=== PATIENT | male | born 1935 | race Native Hawaiian/Other Pacific Islander ===

== ENCOUNTER 2017-05-18 23:49 | Emergency (ER) | payer BC, MEDICARE ==
[2017-05-19] MEDS ORDERED: Albuterol-Ipratrop 3 mg / 0.5 (3 ml) UD IH STA ×2 (01:20→03:23)
--- NOTE | 2017-05-19 01:26 | ED PDOC ---
Arrival/HPI - General Chief Complaint: Shortness Of Breath Time Seen by Provider: 05/19/17 00:51 Historian: Patient - History of Present Illness Narrative History of Present Illness (Text): 05/19/17 01:18 A 81 year old male, whose past medical history includes COPD, diabetes mellitus , and hypertension, presents to the emergency department complaining of shortness of breath from worsening emphysema according to patient. Patient denies chest pain, fever, chills, cough, or any other complaints. Also, patient mentions he uses home nebulizer and is currently feeling better. No PMD Past Medical History - Provider Review Nursing Documentation Reviewed: Yes - Cardiac Hx Hypertension: Yes - Pulmonary Hx Respiratory Disorders: Yes Hx Chronic Obstructive Pulmonary Disease (COPD): Yes - Endocrine/Metabolic Hx Endocrine Disorders: Yes Hx Diabetes Mellitus Type 2: Yes - Psychiatric Hx Substance Use: No - Surgical History Hx Cholecystectomy: Yes Family/Social History - Physician Review Nursing Documentation Reviewed: Yes Family/Social History: No Known Family HX Smoking Status: Former Smoker Hx Alcohol Use: No Hx Substance Use: No Allergies/Home Meds Allergies/Adverse Reactions: Allergies No Known Allergies Allergy (Verified 05/19/17 00:18) Home Medications: Home Meds Medication Instructions Recorded Confirmed Losartan [Cozaar] 05/19/17 Simvastatin [Zocor] 05/19/17 05/19/17 metFORMIN [glucOPHAGE] 05/19/17 Review of Systems - Physician Review All systems were reviewed & negative as marked: Yes - Review of Systems Constitutional: absent: Fevers, Night Sweats Respiratory: SOB. absent: Cough Cardiovascular: absent: Chest Pain Physical Exam Vital Signs Reviewed: Yes Vital Signs Temp Pulse Resp BP Pulse Ox 05/19/17 03:00 98.5 F 83 16 150/59 L 100 05/19/17 01:49 98.6 F 87 19 139/78 99 05/19/17 00:15 16 99 05/19/17 00:13 98.6 F 85 18 156/83 H 97 Temperature: Afebrile Blood Pressure: Hypertensive Pulse: Regular Respiratory Rate: Normal Appearance: Positive for: Well-Appearing Pain Distress: None Mental Status: Positive for: Alert and Oriented X 3 - Systems Exam Head: Present: Atraumatic, Normocephalic Pupils: Present: PERRL Extroacular Muscles: Present: EOMI Conjunctiva: Present: Normal Mouth: Present: Moist Mucous Membranes Neck: Present: Normal Range of Motion Respiratory/Chest: Present: Decreased Breath Sounds (bilaterally) Cardiovascular: Present: Regular Rate and Rhythm, Normal S1, S2. No: Murmurs Abdomen: Present: Normal Bowel Sounds. No: Tenderness, Distention, Peritoneal Signs Back: Present: Normal Inspection Upper Extremity: Present: Normal Inspection. No: Cyanosis, Edema Lower Extremity: Present: Normal Inspection. No: Edema Neurological: Present: GCS=15, CN II-XII Intact, Speech Normal Skin: Present: Warm, Dry, Normal Color. No: Rashes Psychiatric: Present: Alert, Oriented x 3, Normal Insight, Normal Concentration Medical Decision Making ED Course and Treatment: 05/19/17 01:20 Impression: 81 year old male with shortness of breath. Physical exam shows decreased breath sounds bilaterally, overall normal examination. Plan: -- EKG -- Chest X-ray -- labs -- Duoneb -- SOLU-Medrol -- Reassess and disposition Progress Notes: - Lab Interpretations Lab Results: 05/19/17 00:30 05/19/17 00:30 Lab Results 05/19/17 00:30: WBC 6.0, RBC 4.55, Hgb 13.0 L, Hct 40.3 L, MCV 88.6, MCH 28.6, MCHC 32.3, RDW 14.4, Plt Count 193, MPV 9.4 05/19/17 00:30: Sodium 144, Potassium 4.7, Chloride 103, Carbon Dioxide 31, Anion Gap 14, BUN 12, Creatinine 1.2, Est GFR ( Amer) > 60, Est GFR (Non- Af Amer) 58, Random Glucose 129 H, Calcium 9.0, Total Bilirubin 0.3, AST 27, ALT 28, Alkaline Phosphatase 86, Lactate Dehydrogenase 491, Total Creatine Kinase 101, Troponin I < 0.01, Total Protein 7.2, Albumin 4.2, Globulin 3.0, Albumin/Globulin Ratio 1.4 I have reviewed the lab results: Yes - RAD Interpretation Narrative RAD Interpretations (Text): 05/19/17 04:28 CXR- No acute process Radiology Orders: 05/19/17 01:20 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 - EKG Interpretation EKG Interpretation (Text): 02/21/18 04:28 EKG-NSR@ 85 with sinus arrythmia,no acute changes Interpreted by ED Physician: Yes Type: 12 lead EKG - Medication Orders Current Medication Orders: Discontinued Medications Albuterol/Ipratropium (Duoneb 3 Mg/0.5 Mg (3 Ml) Ud) 3 ml IH ONCE STA Stop: 05/19/17 01:21 Last Admin: 05/19/17 01:27 Dose: 3 ml Albuterol/Ipratropium (Duoneb 3 Mg/0.5 Mg (3 Ml) Ud) 3 ml IH ONCE STA Stop: 05/19/17 03:24 Last Admin: 05/19/17 03:39 Dose: 3 ml Methylprednisolone (Solu-Medrol) 125 mg IVP ONCE ONE Stop: 05/19/17 01:21 Last Admin: 05/19/17 01:29 Dose: 125 mg IVP Administration Document 05/19/17 01:29 AB (Rec: 05/19/17 01:29 AB [id number]) Charges for Administration # of IVP Administrations 1 - Scribe Statement The provider has reviewed the documentation as recorded by the Chanell Russell Provider Scribe Attestation: All medical record entries made by the Scribe were at my direction and personally dictated by me. I have reviewed the chart and agree that the record accurately reflects my personal performance of the history, physical exam, medical decision making, and the department course for this patient. I have also personally directed, reviewed, and agree with the discharge instructions and disposition. Disposition/Present on Arrival - Present on Arrival Any Indicators Present on Arrival: No History of DVT/PE: No History of Uncontrolled Diabetes: No Urinary Catheter: No History of Decub. Ulcer: No History Surgical Site Infection Following: None - Disposition Have Diagnosis and Disposition been Completed?: Yes Diagnosis: COPD (chronic obstructive pulmonary disease) Disposition: HOME/ ROUTINE Disposition Time: 04:29 Patient Plan: Discharge Condition: GOOD Discharge Instructions (ExitCare): Chronic Obstructive Pulmonary Disease (COPD) , Including Emphysema Additional Instructions: Take meds as prescribed/follow up with your doctor this week Prescriptions: predniSONE [Prednisone] 40 mg PO DAILY #10 tab Albuterol HFA [Ventolin HFA 90 mcg/actuation (8 g)] 2 puff IH [id number] PRN #1 puff PRN Reason: Wheezing Forms: [facility] (Slovak)
[2017-05-19 02:00] LABS: MEAN CELL VOLUME 88.6 fl (80.0-105.0); MEAN CORPUSCULAR HEMOGLOBIN 28.6 pg (25.0-35.0); MEAN CORPUSCULAR HGB CONC 32.3 g/dl (31.0-37.0); MEAN PLATELET VOLUME 9.4 fl (7.0-11.0); RBC 4.55 10^6/uL (3.5-6.1); RED CELL DISTRIBUTION WIDTH 14.4 % (11.5-14.5)
[2017-05-19 02:15] LABS: ALB/GLOB RATIO 1.4 (1.1-1.8); ALBUMIN 4.2 g/dL (3.0-4.8); ALT/SGPT 28 U/L (7-56); AST/SGOT 27 U/L (17-59); BLOOD UREA NITROGEN 12 mg/dL (7-21); GFR AFRICAN-AMERICAN > 60; GFR NON-AFRICAN AMERICAN 58
[2017-05-19 02:27] LABS: TROPONIN I < 0.01 ng/mL
[2017-05-19 03:40] VITALS: RESP 16; O2SAT 100
[2017-05-19 04:43] VITALS: BP 148/89; PULSE 79; TEMP 98.7
--- NOTE | 2017-05-19 09:49 | RAD ---
HISTORY: sob COMPARISON: No prior. FINDINGS: LUNGS: No active pulmonary disease. PLEURA: No significant pleural effusion identified, no pneumothorax apparent. CARDIOVASCULAR: Normal. OSSEOUS STRUCTURES: No significant abnormalities. VISUALIZED UPPER ABDOMEN: Normal. OTHER FINDINGS: None. IMPRESSION: No active disease.
--- NOTE | 2017-05-19 22:02 | CARD ---
APPROVED REPORT EKG Measurement Heart [id number] <Conclusion> Sinus rhythm with marked sinus arrhythmia Possible Left atrial enlargement nonspecific ST changes Borderline ECG
== END 2017-05-19 04:42 | disposition home or self-care (01) ==
LOC: MERGE 23:49 → ED 23:49
DX: J44.9 Chronic obstructive pulmonary disease, unspecified (principal); I10 Essential (primary) hypertension; E11.9 Type 2 diabetes mellitus without complications; Z79.84 Long term (current) use of oral hypoglycemic drugs; Z87.891 Personal history of nicotine dependence
CPT/HCPCS: 71045; 80053; 82550; 83615; 84484; 85027; 93005; 96374; 99284; J2930